=== PATIENT | male | born 1955 | race Caucasian/White ===

== ENCOUNTER 2021-01-19 10:16 | Emergency (ER) | payer MEDICARE, OTHER ==
[~2021-01-19] VITALS: Ht 175.3 cm; Wt 109.7 kg
[~2021-01-19 10:16] MED LIST: METH4TAB3 PO; METH500T PO
[2021-01-19] MEDS ORDERED: amLODIPine 5mg tablet PO ONE (12:15)
[2021-01-19] MEDS ORDERED: AMLO5TAB4 PO (12:18)
[2021-01-19 12:38] VITALS: BP 188/86
== END 2021-01-19 12:40 | disposition home or self-care (01) ==
LOC: ER 10:17
DX: I10 Essential (primary) hypertension (principal); R42 Dizziness and giddiness; G89.29 Other chronic pain; F17.200 Nicotine dependence, unspecified, uncomplicated; Z88.1 Allergy status to other antibiotic agents; Z88.6 Allergy status to analgesic agent; Z79.899 Other long term (current) drug therapy
CPT/HCPCS: 99283